=== PATIENT | male | born 1975 | race Caucasian/White ===

== ENCOUNTER → 2016-09-08 | Outpatient (CLI) | payer OTHER | LOC: KOH-I 10:52 → EMI 09-09 09:00 → EDSEX 09-09 09:00 | DX: Z00.00 Encounter for general adult medical examination without abnormal findings (principal); Q03.9 Congenital hydrocephalus, unspecified; H91.90 Unspecified hearing loss, unspecified ear; G43.909 Migraine, unspecified, not intractable, without status migrainosus; I25.119 Atherosclerotic heart disease of native coronary artery with unspecified angina pectoris | CPT/HCPCS: 70551; 93880 ==

== ENCOUNTER 2021-06-07 08:22 | Emergency (ER) | payer OTHER ==
[2021-06-07] MEDS ORDERED: MEDROL DOSEPAK 24 MG PO (11:08)
[2021-06-07] MEDS ORDERED: NORFLEX 100 MG100 MG PO (11:08)
[2021-06-07] MEDS ORDERED: Voltaren Gel 1 % TOP (11:08)
== END 2021-06-07 11:20 | disposition home or self-care (01) ==
LOC: ER1 08:22
DX: M51.36 Other intervertebral disc degeneration, lumbar region (principal); F41.9 Anxiety disorder, unspecified; J45.909 Unspecified asthma, uncomplicated; Z87.891 Personal history of nicotine dependence; Z90.49 Acquired absence of other specified parts of digestive tract
CPT/HCPCS: 72131; 81001; 99284